=== PATIENT | female | born 1945 | race Caucasian/White ===

== ENCOUNTER 2019-10-13 10:15 | Emergency (ER) | payer MEDICARE ==
[2019-10-13 10:36] VITALS: BP 132/63; PULSE 67
[2019-10-13] MEDS ORDERED: Albuterol/Ipratropium 3.0-0.5 MG/3 ML Neb Soln NEB ONE (10:57)
--- NOTE | 2019-10-13 11:04 | EDM.PDOC ---
ED HPI GENERAL MEDICAL PROBLEM - General Chief Complaint: Respiratory Problem Stated Complaint: COUGHING BEEN TO CLINIC TWICE STILL SICK Time Seen by Provider: 10/13/19 10:40 History Limitations: Reports: No Limitations - History of Present Illness INITIAL COMMENTS - FREE TEXT/NARRATIVE: 74 yo female presents with a cough, wheezing and SOB. Has a hx of asthma and is a smoker. Is currently on prednisone 20 mg daily and neb tx's per the clinic where she was seen Wednesday for this. Was running a fever until yesterday or today. Onset: Gradual Onset Date: 10/07/19 Duration: Week(s): (1), Getting Worse Location: Reports: Chest Quality: Reports: Other (no pain reported) Severity: Moderate Improves with: Reports: Medication Worsens with: Reports: Other (time) Context: Reports: Other (See HPI) Associated Symptoms: Reports: Cough, Fever/Chills (now resolved), Shortness of Breath Treatments ENROUTE CONTROLLER: Reports: Other (see below) (Use about 1/2 of a neb treatment at home, stopped due to increased coughing) - Related Data Allergies Allergy/AdvReac Type Severity Reaction Status Date / Time ciprofloxacin Allergy Rash Verified 10/13/19 10:34 clarithromycin [From Biaxin] Allergy Rash Verified 10/13/19 10:34 clindamycin Allergy Rash Verified 10/13/19 10:34 erythromycin base Allergy Rash Verified 10/13/19 10:34 Iodinated Contrast Media Allergy Hives Verified 10/13/19 10:34 [Iodinated Contrast Media - IV Dye] moxifloxacin HCl Allergy Rash Verified 10/13/19 10:34 [From Vigamox] Sulfa (Sulfonamide Allergy Rash Verified 10/13/19 10:34 Antibiotics) Home Meds: Home Meds Acyclovir 400 mg PO DAILY 01/24/15 [History] Albuterol Sulfate [Ventolin Hfa] 1 puff IH ASDIRECTED PRN 01/24/15 [History] Levothyroxine [Synthroid] 100 mcg PO DAILY 01/24/15 [History] Rosuvastatin [Crestor] 10 mg PO BEDTIME 01/24/15 [History] Albuterol [Ventolin HFA] 1 - 2 puff IH ASDIRECTED PRN 10/13/19 [History] Benzonatate 200 mg PO TID 10/13/19 [History] Doxycycline [Doxycycline Hyclate] 100 mg PO BID 10/13/19 [History] Ipratropium/Albuterol Sulfate [Iprat-Albut 0.5-3(2.5) mg/3 ml] 3 ml IH ASDIRECTED PRN 10/13/19 [History] Melatonin 5 mg PO DAILY 10/13/19 [History] Nebulizer [Airs Disposable Nebulizer] 1 each MC ASDIRECTED 10/13/19 [History] Propranolol [Inderal] 40 mg PO BID 10/13/19 [History] predniSONE [Prednisone] 20 mg PO DAILY 10/13/19 [History] Past Medical History HEENT History: Reports: None Cardiovascular History: Reports: High Cholesterol Respiratory History: Reports: Asthma, Bronchitis, Recurrent, Sleep Apnea, SOB, Other (See Below) Other Respiratory History: uses CPAP Gastrointestinal History: Reports: None Genitourinary History: Reports: UTI, Recurrent VASCULAR NEUROLOGIST History: Reports: Endometriosis, Fibroids Musculoskeletal History: Reports: Arthritis, Back Pain, Chronic, Other (See Below) Endocrine/Metabolic History: Reports: Hypothyroidism - Infectious Disease History Infectious Disease History: Reports: Chicken Pox, Hepatitis B, Measles, Mumps - Past Surgical History Head Surgeries/Procedures: Reports: None HEENT Surgical History: Reports: Cataract Surgery, Tonsillectomy Cardiovascular Surgical History: Reports: None Respiratory Surgical History: Reports: None GI Surgical History: Reports: Cholecystectomy Female Surgical History: Reports: Hysterectomy Other Female Surgeries/Procedures: bladder polyps Endocrine Surgical History: Reports: None Musculoskeletal Surgical History: Reports: Hip Replacement Other Musculoskeletal Surgeries/Procedures:: right hip Dermatological Surgical History: Reports: None Social & Family History - Tobacco Use Smoking Status *Q: Current Every Day Smoker Years of Tobacco use: 10 Packs/Tins Daily: 4 Used Tobacco, but Quit: No Second Hand Smoke Exposure: No - Caffeine Use Caffeine Use: Reports: Coffee, Tea - Recreational Drug Use Recreational Drug Use: No ED ROS GENERAL - Review of Systems Review Of Systems: See Below Constitutional: Reports: No Symptoms (fever now resolved.) HEENT: Reports: Rhinitis (clear) Respiratory: Reports: Shortness of Breath, Wheezing, Cough. Denies: Sputum, Hemoptysis Cardiovascular: Reports: No Symptoms GI/Abdominal: Reports: No Symptoms : Reports: No Symptoms Musculoskeletal: Reports: No Symptoms Skin: Reports: No Symptoms Neurological: Reports: No Symptoms ED EXAM, GENERAL - Physical Exam Exam: See Below Exam Limited By: No Limitations General Appearance: Alert, WD/WN, Mild Distress Eye Exam: Bilateral Eye: Normal Inspection Ears: Normal External Exam, Normal Canal, Hearing Grossly Normal, Normal TMs Ear Exam: Bilateral Ear: Auricle Normal, Canal Normal, TM normal Nose: Normal Inspection, No Blood Throat/Mouth: Normal Inspection, Normal Lips, Normal Oropharynx, Normal Voice, No Airway Compromise Head: Atraumatic, Normocephalic Neck: Normal Inspection Respiratory/Chest: No Respiratory Distress, No Accessory Muscle Use, Wheezing. No: Retractions Cardiovascular: Regular Rate, Rhythm, No Edema GI/Abdominal: Normal Bowel Sounds, Soft, Non-Tender, No Distention Back Exam: Normal Inspection. No: CVA Tenderness (R), CVA Tenderness (L) Extremities: Normal Inspection, Normal Range of Motion, Non-Tender, No Pedal Edema Neurological: Alert, Oriented, CN II-XII Intact, Normal Cognition, No Motor/ Sensory Deficits Psychiatric: Normal Affect, Normal Mood Skin Exam: Warm, Dry, Intact, Normal Color, No Rash Course - Vital Signs Last Recorded V/S: Last Vital Signs Temp 36.8 C 10/13/19 10:34 Pulse 67 10/13/19 10:34 Resp 20 10/13/19 10:34 BP 132/63 10/13/19 10:34 Pulse Ox 97 10/13/19 10:34 - Orders/Labs/Meds Orders: Active Orders 24 hr Category Date Time Status RT Aerosol Therapy [RC] ASDIRECTED Care 10/13/19 10:58 Active Labs: Laboratory Tests 10/13/19 10/13/19 Range/Units 10:40 10:40 WBC 11.9 H (4.5-11.0) K/uL RBC 4.04 (3.30-5.50) M/uL Hgb 12.5 (12.0-15.0) g/dL Hct 39.3 (36.0-48.0) % MCV 97 (80-98) fL MCH 31 (27-31) pg MCHC 32 (32-36) % Plt Count 298 (150-400) K/uL Sodium 141 (140-148) mmol/L Potassium 3.8 (3.6-5.2) mmol/L Chloride 107 (100-108) mmol/L Carbon Dioxide 25 (21-32) mmol/L Anion Gap 8.8 (5.0-14.0) mmol/L BUN 16 (7-18) mg/dL Creatinine 1.0 (0.6-1.0) mg/dL Est Cr Clr Drug Dosing 39.63 mL/min Estimated GFR (MDRD) 54 L (>60) Glucose 102 (74-106) mg/dL Calcium 8.6 (8.5-10.1) mg/dL Meds: Medications Discontinued Medications Generic Name Dose Route Start Last Admin Trade Name Freq PRN Reason Stop Dose Admin Albuterol/Ipratropium 3 ml 10/13/19 10:57 10/13/19 11:02 Duoneb 3.0-0.5 Mg/3 Ml NEB 10/13/19 10:58 3 ml ONETIME ONE Administration - Radiology Interpretation Free Text/Narrative:: CXR-no acute findings Departure - Departure Time of Disposition: 11:40 Disposition: Home, Self-Care 01 Condition: Fair Clinical Impression: Viral respiratory illness, Bronchospasm - Discharge Information *PRESCRIPTION DRUG MONITORING PROGRAM REVIEWED*: Not Applicable *COPY OF PRESCRIPTION DRUG MONITORING REPORT IN PATIENT [place]: Not Applicable Instructions: Bronchospasm, Adult Referrals: Nancy Skinner MD [Primary Care Provider] - Forms: ED Department Discharge Additional Instructions: Take prednisone 40 mg with food and then 20 mg twice daily. Use your inhaler and nebulizers to help keep your airways open. Avoid smoke. Recheck if worse or not improving. Sepsis Event Note - Evaluation Sepsis Screening Result: No Definite Risk - Focused Exam Vital Signs: Vital Signs Temp Pulse Resp BP Pulse Ox 10/13/19 10:34 36.8 C 67 20 132/63 97 10/13/19 10:30 36.8 C 67 20 132/63 97 Date Exam was Performed: 10/13/19 Time Exam was Performed: 11:35 - My Orders Last 24 Hours: My Active Orders 10/13/19 10:58 RT Aerosol Therapy [RC] ASDIRECTED - Assessment/Plan Last 24 Hours: My Active Orders 10/13/19 10:58 RT Aerosol Therapy [RC] ASDIRECTED
--- NOTE | 2019-10-13 11:17 | CRLCR ---
Indication: Cough and shortness of breath with COPD Technique: Chest 2 views Comparison: None Findings: Cardiovascular and mediastinum: Heart size and vasculature are normal in caliber and appearance. Lungs and pleural spaces: Lungs are clear. No sign of infiltrate or mass. No sign of pleural effusion. No pneumothorax. Bones and soft tissues: No significant findings. Impression: No acute or significant findings. Dictated by Claus Corrigan MD @ Oct 13 2019 11:15AM Signed by Dr. Claus Corrigan @ Oct 13 2019 11:15AM
== END 2019-10-13 11:43 | disposition home or self-care (01) ==
LOC: JP.ED 10:15
DX: J98.01 Acute bronchospasm (principal); B34.9 Viral infection, unspecified; E78.00 Pure hypercholesterolemia, unspecified; M19.90 Unspecified osteoarthritis, unspecified site; E03.9 Hypothyroidism, unspecified; F17.210 Nicotine dependence, cigarettes, uncomplicated; Z88.8 Allergy status to other drugs, medicaments and biological substances; Z88.2 Allergy status to sulfonamides; Z91.041 Radiographic dye allergy status; Z88.1 Allergy status to other antibiotic agents; Z79.899 Other long term (current) drug therapy
CPT/HCPCS: 36415; 71046; 80048; 85027; 94640; 99284; 99284-25; J7620-GY

== ENCOUNTER 2021-12-10 06:23 | Day surgery (SDC) | payer MEDICARE ==
[2021-12-10] MEDS ORDERED: Lactated Ringers 1,000 ML IV SCH (07:00)
[2021-12-10] MEDS ORDERED: fentaNYL 100 MCG/2 ML SDV ONE ×2 (07:29→07:41)
[2021-12-10] MEDS ORDERED: Propofol 200 MG/20 ML SDV ONE ×2 (07:41→08:00)
[2021-12-10] MEDS ORDERED: Midazolam 1 MG/ML 2 ML SDV ONE (07:41)
[2021-12-10] MEDS: Nozin Nasal Sanitizer NASBOTH SCH ×2 (07:48→20:21)
[2021-12-10] MEDS ORDERED: ceFAZolin 2 GM in Premix Bag 1 BAG IV ONE (08:00)
[2021-12-10] MEDS ORDERED: Bupivacaine 0.5% 50 ML MDV ONE (08:06)
[2021-12-10] MEDS ORDERED: Dexamethasone 4 MG/ML SDV ONE (09:13)
[2021-12-10] MEDS ORDERED: Ondansetron 4 MG/2 ML SDV ONE (09:13)
[2021-12-10] MEDS ORDERED: Lactated Ringers 1,000 ML ONE (09:55)
[2021-12-10] MEDS ORDERED: traMADol 50 MG Tab PO PRN (10:26)
[2021-12-10] MEDS ORDERED: Ondansetron 4 MG/2 ML SDV IVPUSH PRN (10:26)
[2021-12-10] MEDS ORDERED: HYDROmorphone 0.5 MG/0.5 ML Syringe IVPUSH PRN (10:26)
[2021-12-10] MEDS ORDERED: Albuterol 0.083% 2.5 MG/3 ML Neb Soln INH PRN (10:30)
[2021-12-10] MEDS ORDERED: Sodium Chloride 0.9% 1,000 ML IV SCH (10:30)
[2021-12-10] MEDS ORDERED: Albuterol 8 GM Inhaler INH PRN (10:30)
[2021-12-10] MEDS ORDERED: Fluticasone NASAL Spray 16 GM Bottle NASBOTH PRN (10:30)
[2021-12-10] MEDS ORDERED: Acetaminophen/HYDROcodone 325-5 MG Tab PO PRN (10:32)
[2021-12-10] MEDS ORDERED: Acetaminophen/HYDROcodone 325-10 MG Tab PO PRN (10:32)
[2021-12-10] MEDS ORDERED: Melatonin 3 MG Tab PO PRN (10:46)
[2021-12-10] MEDS ORDERED: Acetaminophen 500 MG Tab PO SCH (12:00)
[2021-12-10] MEDS: Acetaminophen 325 MG Tab PO SCH ×3 (12:05→23:58)
[2021-12-10] MEDS: Ketorolac 30 MG/ML SDV IVPUSH SCH ×2 (12:06→20:18)
[2021-12-10] MEDS ORDERED: CROMOLYN EYEBOTH SCH (16:00)
[2021-12-10] MEDS: ceFAZolin 1 GM in Premix Bag 1 BAG IV SCH (16:06)
[2021-12-10] MEDS: Docusate Sodium 100 MG Cap PO SCH (20:21)
[2021-12-10] MEDS: Propranolol 40 MG Tab PO SCH (20:22)
[2021-12-10] MEDS: CYCLOSPORINE EYEBOTH SCH (20:23)
[2021-12-10] MEDS ORDERED: Nozin Nasal Sanitizer NASBOTH SCH (21:00)
[2021-12-10] MEDS ORDERED: ESTRADIOL PRN (21:00)
[2021-12-10] MEDS ORDERED: PATADAY 0.2% EYEBOTH PRN (21:00)
[2021-12-11] MEDS: Acetaminophen 325 MG Tab PO SCH ×2 (05:33→12:06)
[2021-12-11] MEDS: Celecoxib 200 MG Cap PO SCH ×2 (07:17→08:22)
[2021-12-11] MEDS: ceFAZolin 1 GM in Premix Bag 1 BAG IV SCH ×3 (07:24)
[2021-12-11] MEDS ORDERED: Levothyroxine 88 MCG Tab PO SCH (07:30)
[2021-12-11] MEDS: Docusate Sodium 100 MG Cap PO SCH (08:22)
[2021-12-11] MEDS: Nozin Nasal Sanitizer NASBOTH SCH (08:22)
[2021-12-11] MEDS: CYCLOSPORINE EYEBOTH SCH (08:22)
[2021-12-11] MEDS: Propranolol 40 MG Tab PO SCH (08:23)
[2021-12-11] MEDS ORDERED: Cetirizine 10 MG Tab PO SCH (09:00)
[2021-12-11] MEDS ORDERED: Enoxaparin 30 MG/0.3 ML Syringe SUBCUT SCH (09:00)
[2021-12-11] MEDS ORDERED: Acyclovir 200 MG Cap PO SCH (09:00)
[2021-12-11] MEDS ORDERED: Rosuvastatin 10 MG Tab PO SCH (09:00)
[2021-12-11 10:31] VITALS: BP 141/56
[2021-12-11 10:32] VITALS: PULSE 59
== END 2021-12-11 14:30 | disposition home or self-care (01) ==
LOC: JP.SDS 06:23 → JP.MS 10:26 → JP.SDS 12-11 14:30
PROVIDERS: ATTEND Specialist
DX: M17.12 Unilateral primary osteoarthritis, left knee (principal); E03.9 Hypothyroidism, unspecified; E78.00 Pure hypercholesterolemia, unspecified; J45.909 Unspecified asthma, uncomplicated; G47.30 Sleep apnea, unspecified; Z87.891 Personal history of nicotine dependence; Z96.652 Presence of left artificial knee joint; Z79.51 Long term (current) use of inhaled steroids; Z79.890 Hormone replacement therapy; Z79.899 Other long term (current) drug therapy
CPT/HCPCS: 27446; 36415; 73560; 80053; 85027; 97110; 97116; 97161; 97165; 97535; A9270; C1713; J0690; J1100; J1650; J1885; J2250; J2405; J2704; J3010; J3490; J7030; J7120; C1776

== ENCOUNTER 2023-12-01 07:21 | Day surgery (SDC) | payer MEDICARE ==
[2023-12-01] MEDS ORDERED: fentaNYL 100 MCG/2 ML SDV ONE (07:22)
[2023-12-01] MEDS ORDERED: Propofol 200 MG/20 ML SDV ONE (07:22)
[2023-12-01] MEDS: Lactated Ringers 1,000 ML IV SCH (08:10)
[2023-12-01 10:05] VITALS: PULSE 69
[2023-12-01 10:07] VITALS: BP 154/71
== END 2023-12-01 10:11 | disposition home or self-care (01) ==
LOC: JP.SDS 07:21
PROVIDERS: ATTEND Student in an Organized Health Care Education/Training Program
DX: Z12.11 Encounter for screening for malignant neoplasm of colon (principal); K57.30 Diverticulosis of large intestine without perforation or abscess without bleeding; E78.5 Hyperlipidemia, unspecified; E66.9 Obesity, unspecified; Z86.010 Personal history of colon polyps
CPT/HCPCS: 93005; 93010; J2704; J3010; J7120